=== PATIENT | male | born 1970 | race Caucasian/White ===

== ENCOUNTER 2017-03-14 10:15 | Day surgery (SDC) | payer OTHER ==
[2017-03-09 08:40] VITALS: BMI 25.1
[~2017-03-14 10:15] MED LIST: LACTATED RINGERS 1,000 ML IV SCH
[2017-03-14 10:51] VITALS: TEMP 98.3
[2017-03-14] MEDS ORDERED: LIDOCAINE 1% 20 ML VIAL (10MG/ML) FOR IV START INTRADERMA ONE (11:06)
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
[2017-03-14] MEDS ORDERED: PROPOFOL 10 MG/ML 20 ML VIAL IV ONE (11:41)
--- NOTE | 2017-03-14 11:49 | P.OP ---
Date of Procedure: 03/14/17 Preoperative Diagnosis: GERD Postoperative Diagnosis: Antral gastritis Mild esophagitis No significant hiatal hernia Procedure(s) Performed: EGD Implants: Anesthesia: MAC Surgeon: Isaías Blackwell Pathology: other (Antrum, esophagus) Condition: stable Disposition: PACU Indications for Procedure: Operative Findings: Description of Procedure: Patient's placed on the endoscopy table in the lateral position. He received IV sedation. The gastroscope some placed oropharynx passed in the esophagus and stomach. Scope then placed through the pylorus. The first and second portion of the duodenum appeared normal. Scope was then brought back the antrum this appeared mildly inflamed. A biopsies performed. The scope was then retroflexed and the remainder of the stomach appeared normal. There is no significant hiatal hernia. The GE junction was at 40 cm. The distal esophagus appeared minimally inflamed a biopsies performed. The proximal esophagus. Normal. Scope was withdrawn for patient.
[2017-03-14 12:29] VITALS: BP 118/65; PULSE 58; RESP 18
== END 2017-03-14 12:48 | disposition home or self-care (01) ==
LOC: ORWHC2ENDO 10:15
PROVIDERS: ATTEND Surgery
DX: K21.0 Gastro-esophageal reflux disease with esophagitis (principal); K29.50 Unspecified chronic gastritis without bleeding; E78.5 Hyperlipidemia, unspecified; Z88.1 Allergy status to other antibiotic agents; Z88.5 Allergy status to narcotic agent; Z79.899 Other long term (current) drug therapy
CPT/HCPCS: 88305; 88342; 43239; J2704

== ENCOUNTER 2018-02-06 17:32 | Emergency (ER) | payer OTHER ==
[2018-02-06 17:39] VITALS: BP 135/80; PULSE 84; RESP 18; TEMP 98.7
[2018-02-06] MEDS ORDERED: DIPH,PERTUS(ACELL)TETVAC-LF 0.5 ML VIAL IM ONE (18:39)
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
--- NOTE | 2018-02-06 18:57 | XR ---
EXAMINATION TYPE: XR finger LT DATE OF EXAM: 02/06/2018 COMPARISON: NONE HISTORY: Cut distal thumb TECHNIQUE: 3 views FINDINGS: I see no fracture nor dislocation. Joint spaces are normal. There is no sign of a foreign b twyla. IMPRESSION: Negative left thumb exam.
== END 2018-02-06 19:28 | disposition home or self-care (01) ==
LOC: EC 17:32
DX: S61.112A Laceration without foreign body of left thumb with damage to nail, initial encounter (principal); K21.9 Gastro-esophageal reflux disease without esophagitis; E78.5 Hyperlipidemia, unspecified; Z23 Encounter for immunization; Z88.1 Allergy status to other antibiotic agents; Z88.5 Allergy status to narcotic agent; Z79.899 Other long term (current) drug therapy; W26.8XXA Contact with other sharp object(s), not elsewhere classified, initial encounter; Y99.0 Civilian activity done for income or pay; Y92.69 Other specified industrial and construction area as the place of occurrence of the external cause
CPT/HCPCS: 90471; 90715; 99283

== ENCOUNTER → 2020-08-18 | Outpatient (CLI) | payer BC ==
[2020-08-18 08:03] LABS: HCT 50.8 % (39.0-53.0); HGB 16.9 gm/dL (13.0-17.5); MCH 30.7 pg (25.0-35.0); MCHC 33.2 g/dL (31.0-37.0); MCV 92.6 fL (80.0-100.0); Mean Platelet Volume 7.3; Platelet Count 269 k/uL (150-450); RBC 5.49 m/uL (4.30-5.90); RDW 12.3 % (11.5-15.5); WBC 8.3 k/uL (3.8-10.6)
[2020-08-18 11:07] LABS: African American GFR (CKD) 125.8 (60.0-200.0); Albumin 4.7 g/dL (3.80-4.90); Albumin/Globulin Ratio 2.14 (1.60-3.17); Anion Gap 9.2 mmol/L (4.00-12.00); BUN/Creat Ratio 28.57 Ratio (12.00-20.00); Calcium 9.9 mg/dL (8.7-10.3); Carbon Dioxide 30.8 mmol/L (21.6-31.8); Globulin 2.2 g/dL (1.6-3.3); Non-African American GFR(CKD) 108.5 (60.0-200.0); Phosphorus 4.1 mg/dL (2.4-5.1); Potassium 5.1 mmol/L (3.5-5.5); Total Bilirubin 0.7 mg/dL (0.2-1.2); Total Protein 6.9 g/dL (6.2-8.2)
[2020-08-18 11:14] LABS: T4, Free (Free Thyroxine) 1.2 ng/dL (0.80-1.80)
[2020-08-18 14:48] LABS: Amorphous Sediment,Urine Occasional /hpf; Appearance,Urine Cloudy (Clear); Bilirubin,Urine Negative (Negative); Blood,Urine Negative (Negative); Color,Urine Yellow; Glucose,Urine (UA) Negative (Negative); Ketones,Urine Negative (Negative); Leukocyte Esterase,Urine Negative (Negative); Mucus,Urine Few /hpf; Nitrite,Urine Negative (Negative); Protein,Urine Trace (Negative); RBC,Urine 3 /hpf (0-5); Specific Gravity,Urine 1.021 (1.001-1.035); Urobilinogen,Urine <2.0 mg/dL (<2.0); WBC,Urine 5 /hpf (0-5)
== END | disposition home or self-care (01) ==
LOC: LABWHC1 07:20
PROVIDERS: ATTEND Physician Assistant
DX: M79.661 Pain in right lower leg (principal); S82.231A Displaced oblique fracture of shaft of right tibia, initial encounter for closed fracture
CPT/HCPCS: 36415; 80053; 81001; 82306; 82310; 82652; 83970; 84100; 84439; 84443; 85027

== ENCOUNTER → 2020-11-20 | Outpatient (CLI) | payer BC ==
--- NOTE | 2020-11-20 14:56 | BD ---
EXAMINATION TYPE: Axial Bone Density DATE OF EXAM: 11/20/2020 COMPARISON: NONE CLINICAL HISTORY: Height: 69 Weight: 192.0 FRAX RISK QUESTIONS: Alcohol (3 or more units per day): no Family History (Parent hip fracture): no Glucocorticoids (More than 3mos): no (Ex: prednisone, prednisolone, methylprednisolone, dexamethasone, and hydrocortisone). History of Fracture in Adulthood: yes Secondary Osteoporosis: 1. Type 1 Diabetes: no 2. Hyperthyroidism: no 3. Menopause before 45: n/a 4. Malnutrition: no 5. Chronic liver disease: no Rheumatoid Arthritis: no Current Tobacco Use: no RISK FACTORS HISTORY OF: Family History of Osteoporosis: no Active: yes Diet low in dairy products/other sources of calcium: no Postmenopausal woman: n\a Lost more than 2 inches in height since high school: no MEDICATIONS: simvastatin, omeprazole Additional History: EXAM MEASUREMENTS: Bone mineral densitometry was performed using the [employer] [facility]. Bone mineral density as measured about the Lumbar spine is: ----- L1-L4(G/cm2): 1.286 T Score Values are as follows: ----- L2: 1.8 ----- L3: 1.4 ----- L4: -0.3 ----- L1-L4: 0.9 Bone mineral density : baseline Bone mineral density about the R hip (g/cm2): 1.050 Bone mineral density about the L hip (g/cm2): 1.059 T Score values are as follows: -----R Neck: 0.1 -----L Neck: 0.2 -----R Total: 0.3 -----L Total: 0.3 Bone mineral density : baseline IMPRESSION: No evidence for osteoporosis or osteopenia. NOTE: T-SCORE=SD OF THE YOUNG ADULT MEAN.
== END | disposition home or self-care (01) ==
LOC: RADBDWWP 12:52
PROVIDERS: ATTEND Family Medicine
DX: M81.0 Age-related osteoporosis without current pathological fracture (principal)
CPT/HCPCS: 77080

== ENCOUNTER → 2021-03-05 | Outpatient (CLI) | payer BC ==
[2021-03-05 20:55] LABS: Albumin 4.9 g/dL (3.80-4.90)
== END | disposition home or self-care (01) ==
LOC: LABWHC1 12:21
PROVIDERS: ATTEND Orthopaedic Surgery
DX: S82.231D Displaced oblique fracture of shaft of right tibia, subsequent encounter for closed fracture with routine healing (principal); M79.661 Pain in right lower leg; M79.671 Pain in right foot; L03.031 Cellulitis of right toe; X58.XXXD Exposure to other specified factors, subsequent encounter
CPT/HCPCS: 36415; 82040; 82306; 82672; 83970; 84134; 84403

== ENCOUNTER → 2024-12-06 | Outpatient (CLI) | payer BC ==
--- NOTE | 2024-12-06 11:09 | US ---
EXAMINATION TYPE: US carotid duplex BILAT DATE OF EXAM: 12/06/2024 COMPARISON: NONE CLINICAL INDICATION: Male, 54 years old with history of I65.23 STENOSIS; Additional History: .... TECHNIQUE: Grayscale, color Doppler and spectral Doppler evaluation of the bilateral carotid systems and vertebral arteries. Indirect Doppler criteria was utilized. FINDINGS: EXAM MEASUREMENTS: RIGHT: Peak Systolic Velocity (PSV) cm/sec ----- Right CCA: 145 ----- Right ICA: 129 ----- Right ECA: 126 ICA/CCA ratio: 0.9 RIGHT: End Diastole cm/sec ----- Right CCA: 22.1 ----- Right ICA: 16.9 ----- Right ECA: 16.9 LEFT: Peak Systolic Velocity (PSV) cm/sec ----- Left CCA: 130 ----- Left ICA: 115 ----- Left ECA: 129 ICA/CCA ratio: 0.9 LEFT: End Diastole cm/sec ----- Left CCA: 27.9 ----- Left ICA: 29.8 ----- Left ECA: 11.5 VERTEBRALS (direction of flow): Right Vertebral: Antegrade Left Vertebral: Antegrade Rhythm: Normal NET TRAINER NOTES: Slightly limited visualization at Lt ECA due to vessel tortuosity No plaque or significant stenosis seen bilaterally ? Slightly elevated velocities RT Prox CCA Color Doppler imaging shows patency with blood flow throughout the carotid artery. Spectral waveforms are within normal limits. IMPRESSION: 1. Moderate stenosis between 50 and 69% right internal carotid artery. Criteria for Assigning % of Stenosis / Diameter reduction (Estimation based on the indirect measurements of the internal carotid artery velocities (ICA PSV). 1. Normal (no stenosis)=ICA PSV < 125 cm/s: ratio < 2.0: ICA EDV<40 cm/s. 2. Less than 50% stenosis=ICA PSV < 125 cm/s: ratio < 2.0: ICA EDV<40 cm/s. 3. 50 to 69% stenosis=ICA PSV of 125 to 230 cm/s: ration 2.0 ? 4.0: ICA EDV 40-100 cm/s. 4. Greater than 70% stenosis to near occlusion= ICA PSV > 230 cm/s: ratio > 4.0: ICA EDV > 100 cm/s. 5. Near occlusion= ICA PSV velocities may be low or undetectable: variable ratio and ICA EDV. 6. Total occlusion=unable to detect flow. [facility], , 12/06/2024 11:06 AM
== END | disposition home or self-care (01) ==
LOC: RADUSWWP 10:08
PROVIDERS: ATTEND Internal Medicine
DX: I65.21 Occlusion and stenosis of right carotid artery (principal)
CPT/HCPCS: 93880

== ENCOUNTER → 2024-12-20 | Outpatient (CLI) | payer BC ==
--- NOTE | 2024-12-20 09:05 | CT ---
EXAMINATION TYPE: CT angio neck DATE OF EXAM: 12/20/2024 COMPARISON: Carotid ultrasound December 06, 2024 CLINICAL INDICATION: Male, 54 years old with history of I65.23 OCCLUSION AND STENOSIS OF BILATERAL CA ROTID; PHH, Carotid Stenosis TECHNIQUE: CTA scan of the head and neck is performed without and with IV Contrast, patient injected with 65 ml mL of Isovue 370, axial images are obtained, coronal and sagittal reformatted images are reviewed. 3D reconstructed images are created on an independent workstation and reviewed. CT DLP: 315 mGycm Automated exposure control for dose reduction was used. NASCET criteria was used in interpretation of this exam? FINDINGS: Right Carotid System: The common carotid artery and external carotid artery are patent. The carotid bifurcation demonstrate s no evidence of hemodynamically significant stenosis. The remaining portions of the internal carotid artery demonstrate normal size without significant narrowing. Left Carotid System: The common carotid artery and external carotid artery are patent. The carotid bifurcation demonstrate s no evidence of hemodynamically significant stenosis. The remaining portions of the internal carotid artery demonstrate normal size without significant narrowing. Distal portion of both internal carotid arteries is not included. Vertebral arteries are patent without evidence hemodynamically significant stenosis. Distal portion t o the bifurcation is not included. There is a three-vessel aortic arch. The origins of the great vessels are patent. No evidence of hemo dynamically significant stenosis. Other: Moderate spurring and disc space narrowing at C6-C7 level. Slight grade 1 anterolisthesis of C 5 on C6. IMPRESSION: 1. No evidence of significant stenosis at the carotid bifurcations. Patient had elevated peak systo lic velocities in bilateral common carotid arteries on recent ultrasound raising concern for uncontro lled hypertension. Correlate clinically. [facility], , 12/20/2024 9:03 AM
== END | disposition home or self-care (01) ==
LOC: RADCTMAIN 07:42
PROVIDERS: ATTEND Internal Medicine
DX: I65.23 Occlusion and stenosis of bilateral carotid arteries (principal)
CPT/HCPCS: 70498; Q9967

== ENCOUNTER → 2025-02-17 | Outpatient (CLI) | payer BC ==
--- NOTE | 2025-02-17 14:02 | MR ---
EXAMINATION TYPE: MR knee LT wo con DATE OF EXAM: 02/17/2025 10:37 AM COMPARISON: Outside radiograph 02/04/2025 CLINICAL INDICATION: Male, 54 years old with history of M25.562 LEFT KNEE, left knee pain x 2 wks, he neo a pop while walking. TECHNIQUE: Multiplanar, multisequence imaging of the left knee is performed without IV contrast. FINDINGS: Some increased signal along the intact ACL fibers. PCL is intact. Prominent medial edema with deep fiber tear of the MCL. Superficial fibers remain intact. Additional prominent lateral soft tissue swelling with increased signal at the popliteus tendon and f emoral attachment of the LCL proper. There is a large oblique tear extending through the posterior horn and body of the medial meniscus. M ild extrusion of the meniscal body along with a portion located within the inferior gutter. Moderate irregular cartilage thinning within the mid weightbearing aspect of the medial compartment. The lateral meniscus is intact. Overall lateral compartment articular cartilage volume is maintained. There is moderate irregular cartilage loss along both medial patellar facet and medial trochlea with some reactive subchondral signal change. There is moderate knee joint effusion and prominent deep soft tissue edema suggesting extravasated gurmeet int fluid. Additional generalized subcutaneous soft tissue swelling. No sizable Bright's cyst. Extensor mechanism is intact though with some intermediate signal at the articular facets insertion. Normal popliteal artery anatomy and muscle bulk. No suspicious bone marrow replacement. IMPRESSION: 1. Grade 1 sprains of the ACL and femoral attachment of the LCL proper. Mild popliteus tendon strain. 2. Grade 2 MCL sprain with torn deep fibers. 3. Oblique tear extending through the posterior horn and body of the medial meniscus. Extruded fragme nt of the meniscal body located within the inferior gutter. 4. Mild to moderate medial compartmental OA. Moderate OA particularly along the medial facets of the patellofemoral compartment. 5. Mild insertional quadriceps tendinosis. 6. Moderate knee joint effusion and prominent soft tissue swelling. [facility], , 02/17/2025 2:00 PM
== END | disposition home or self-care (01) ==
LOC: RADMRIMAIN 10:01
PROVIDERS: ATTEND Orthopaedic Surgery
DX: S83.242A Other tear of medial meniscus, current injury, left knee, initial encounter (principal); S83.412A Sprain of medial collateral ligament of left knee, initial encounter; M17.12 Unilateral primary osteoarthritis, left knee; X58.XXXA Exposure to other specified factors, initial encounter

== ENCOUNTER → 2025-03-03 | Outpatient (CLI) | payer BC ==
[2025-03-03 16:38] LABS: Basophils # (A) 0.06 X 10*3/uL (0.00-0.10); Eosinophils # (A) 0.19 X 10*3/uL (0.04-0.35); Eosinophils % (A) 3.1 %; HCT 43.3 % (39.6-50.0); HGB 14.7 g/dL (13.0-17.0); Lymphocytes # (A) 1.42 X 10*3/uL (0.90-5.00); Lymphocytes % (A) 23.3 %; MCH 29.5 pg (27.0-32.0); MCHC 33.9 g/dL (32.0-37.0); MCV 86.8 FL (80.0-97.0); Mean Platelet Volume 10.6 FL (9.5-12.2); Monocytes # (A) 0.86 X 10*3/uL (0.20-1.00); Monocytes % (A) 14.1 %; NRBC Per 100 WBC 0 X 10*3/uL (0.00-0.01); Neutrophils # (A) 3.54 X 10*3/uL (1.80-7.70); Platelet Count 226 X 10*3/uL (140-440); RBC 4.99 X 10*6/uL (4.40-5.60); RDW 12.3 % (11.5-14.5)
[2025-03-03 17:03] LABS: Anion Gap 8.6 mmol/L (4.00-12.00); Carbon Dioxide 26.4 mmol/L (21.6-31.8)
== END | disposition home or self-care (01) ==
LOC: LABPAT 08:45
PROVIDERS: ATTEND Orthopaedic Surgery
DX: Z01.812 Encounter for preprocedural laboratory examination (principal); M23.92 Unspecified internal derangement of left knee
CPT/HCPCS: 80051; 85025

== ENCOUNTER 2025-03-20 06:11 | Day surgery (SDC) | payer BC ==
[2025-03-18 10:37] VITALS: BMI 26.4
--- NOTE | 2025-03-19 14:35 | HP ---
HISTORY AND PHYSICAL DATE OF SURGERY: 03/20/2025. HISTORY OF PRESENT ILLNESS: Jose Holbrook is a 55-year-old gentleman, seen with progressive left knee pain. We discussed options regarding treatment. He elected to proceed with left knee arthroscopy. Consent is obtained. PAST MEDICAL HISTORY: Hypertension, hyperlipidemia, atrial fibrillation. PAST SURGICAL HISTORY: Herniorrhaphy, ORIF right tibia. DAILY MEDICATIONS: 1. Aspirin. 2. Atorvastatin. 3. Metoprolol. 4. Nexium. ALLERGIES: None reported. SOCIAL HISTORY: Denies tobacco use. PHYSICAL EVALUATION OF THE LEFT KNEE: His range of motion is 0 to 130 degrees. There is a mild effusion present. Tenderness, medial joint line. Positive medial Quinton's. Ligaments stable. Hip rotation without pain. Distal neurovascular exam intact. IMAGING STUDIES: Radiographs of the left knee revealed some osteoarthritic changes. MRI of the left knee revealed a medial meniscal tear. IMPRESSION: 1. Intermittent left knee medial meniscal tear. 2. Atrial fibrillation. 3. Hyperlipidemia. PLAN: Left knee arthroscopy with partial medial meniscectomy and debridement. MMODL / IJN: [id number] /
[~2025-03-20 06:11] MED LIST changes: -LACTATED RINGERS 1,000 ML IV SCH; +LIDOCAINE 1% (10MG/ML) FOR IV START INTRADERMA PRN
[2025-03-20] MEDS ORDERED: MIDAZOLAM 2 MG/2 ML VIAL IV PRN (07:00)
[2025-03-20] MEDS ORDERED: fentaNYL (PF) 50 MCG/ML 2 ML AMP IVP PRN (07:00)
[2025-03-20] MEDS: IV FLUID CONTINUATION 1,000 ML IV ONE (07:15)
[2025-03-20] MEDS: LACTATED RINGERS 1,000 ML IV SCH (07:21)
[2025-03-20] MEDS: DEXAMETHASONE SOD PHOSPHATE 4 MG/ML 1 ML VIAL IV ONE (07:24)
[2025-03-20] MEDS ORDERED: LIDOCAINE 1% INJ 10MG/ML (20 ML MDV) ONE (07:24)
[2025-03-20] MEDS ORDERED: MIDAZOLAM 2 MG/2 ML VIAL ONE (07:24)
[2025-03-20] MEDS ORDERED: ePHEDrine 50 MG/ML 1 ML VIAL ONE (07:24)
[2025-03-20] MEDS ORDERED: KETOROLAC 15 MG/ML 1 ML VIAL ONE (07:24)
[2025-03-20] MEDS ORDERED: SUCCINYLCHOLINE CHLORIDE 200 MG/10 ML VIAL IV ONE (07:24)
[2025-03-20] MEDS ORDERED: fentaNYL (PF) 50 MCG/ML 2 ML AMP ONE (07:24)
[2025-03-20] MEDS: ONDANSETRON 4 MG/2 ML VIAL IVP ONE (07:24)
[2025-03-20] MEDS ORDERED: PROPOFOL 10 MG/ML 20 ML VIAL IV ONE (07:24)
[2025-03-20] MEDS: SCOPOLAMINE 1 MG/72 HR PATCH TRANSDERM STA (07:27)
[2025-03-20] MEDS: BUPIVACAINE (PF) 0.25% 30 ML VIAL SQ ONE ×2 (07:29→08:15)
[2025-03-20] MEDS: ceFAZolin 2 GM in DEXTROSE 5% IN WATER 50 ML IVPB PRN (07:30)
[2025-03-20] MEDS: LACTATED RINGERS 1,000 ML IV ONE (08:16)
--- NOTE | 2025-03-20 08:36 | P.OP ---
Date of Procedure: 03/20/25 Preoperative Diagnosis: Internal derangement left knee Postoperative Diagnosis: 1. Tear medial and lateral meniscus left knee 2. Grade IV chondromalacia medial femoral condyle left knee 3. Reactive synovitis medial, lateral and suprapatellar compartments left knee Procedure(s) Performed: 1. Arthroscopic partial medial and lateral meniscectomy left knee 2. Arthroscopic microfracture medial femoral condyle left knee 3. Arthroscopic partial synovectomy medial, lateral and suprapatellar compartments left knee Anesthesia: ZACKARYA, local Surgeon: Trent Cotto Estimated Blood Loss (ml): 7 Pathology: none sent Condition: stable Disposition: PACU Indications for Procedure: 55-year-old patient seen with progressive left knee pain. After having treatment options discussed, he elected to proceed with arthroscopy. Operative Findings: See description of procedure Description of Procedure: Patient was taken to the operative suite. Patient underwent a general anesthetic by the department of anesthesia. Patient was given preoperative antibiotics. The left lower extremity was placed in a well-padded arthroscopic leg kothari. The left leg was prepped and draped in the normal sterile orthopedic fashion. A lateral parapatellar and suprapatellar incision was made. Trochars were inserted. Arthroscopy was initiated. Suprapatellar pouch revealed diffuse thick reactive synovitis. The patellofemoral joint appeared to articulate congruently. There was grade I chondromalacia patellofemoral joint without tears. The scope was guided into the medial gutter. No loose bodies or plica were identified. The scope was then guided into the medial compartment. A medial parapatellar incision was made. Trocar inserted followed by probe. There was a complex tear involving the posterior and mid body areas of the medi al meniscus. There are grade III/IV chondromalacia changes medial femoral condyle with some osteochondral flap tears present. There were grade II chondromalacia changes of the medial tibial plateau. There was thick reactive synovitis anteriorly. I performed a partial medial meniscectomy getting down to stable meniscal tissue. I performed a chondroplasty of the medial femoral condyle getting down to stable osteochondral tissue. I performed a partial synovectomy decompressing the reactive synovitis. I did note an area of grade IV chondromalacia weightbearing surface medial femoral condyle measuring just about a centimeter. I introduced a microfracture awl and I performed a microfracture to that area penetrating the bone with resultant bleeding at the microfracture site. The residual meniscus was probed and was found to be stable. The residual osteochondral surface was stable. There was good decompression of the synovitis. Scope and probe were then guided into the intercondylar notch. Cruciates were identified, probed and found to be stable. The scope and probe were then guided into lateral compartment. There is a small radial tear mid body lateral meniscus. There were grade I chondromalacia changes of the lateral tibial plateau without tears. There was some thick reactive synovitis anteriorly. I performed a partial lateral meniscectomy getting unstable meniscal tissue. I performed a partial synovectomy decompressing the reactive synovitis. The residual meniscus was stable. There was good decompression of the synovitis. The scope was in guided back into the suprapatellar compartment. I used a motorized shaver into the suprapatellar compartment. I debrided some piecemeal fragments of meniscus I encountered. I performed a partial synovectomy. The shaver was removed. There was good decompression of the synovitis. I now took 1 more look around the entire knee, no residual debris. Instruments were now removed from the joint. The joint was infiltrated with .25% Marcaine. Steri-Strips were applied to the portal sites. Sterile dressings were applied. The patient was placed into a DUONG hose. No tourniquet was utilized. The patient was awakened, transferred to a bed and taken to recovery stable satisfactory condition.
[2025-03-20 08:43] VITALS: TEMP 97.2
[2025-03-20] MEDS: HYDROcodone/APAP 5-325MG 1 EACH TAB PO STA (10:31)
[2025-03-20 11:15] VITALS: BP 136/82; PULSE 81; RESP 18
== END 2025-03-20 11:21 | disposition home or self-care (01) ==
LOC: OR 06:11
PROVIDERS: ATTEND Orthopaedic Surgery
DX: S83.242A Other tear of medial meniscus, current injury, left knee, initial encounter (principal); S83.282A Other tear of lateral meniscus, current injury, left knee, initial encounter; M94.262 Chondromalacia, left knee; M65.862 Other synovitis and tenosynovitis, left lower leg; I48.91 Unspecified atrial fibrillation; I10 Essential (primary) hypertension; E78.5 Hyperlipidemia, unspecified; K21.9 Gastro-esophageal reflux disease without esophagitis; Z79.82 Long term (current) use of aspirin; Z79.899 Other long term (current) drug therapy; Z88.1 Allergy status to other antibiotic agents; Z88.5 Allergy status to narcotic agent; X58.XXXA Exposure to other specified factors, initial encounter
CPT/HCPCS: 29880; 29879; 29876; J2250; J0330; J1100; J0690; J2405; J2003; J3010; J1885; J2704; J0665